=== PATIENT | male | born 1990 | race Caucasian/White ===

== ENCOUNTER 2017-08-05 13:07 | Emergency (ER) | payer MEDICAID, OTHER ==
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
[2017-08-05 13:31] VITALS: BP 112/66; PULSE 59; RESP 16; TEMP 99; O2SAT 96
== END 2017-08-05 14:01 | disposition home or self-care (01) ==
DX: S09.92XA Unspecified injury of nose, initial encounter (principal); W22.8XXA Striking against or struck by other objects, initial encounter